=== PATIENT | male | born 1955 | race Asian ===

== ENCOUNTER 2019-03-20 20:31 | Emergency (ER) | payer OTHER ==
[~2019-03-20] VITALS: Ht 160 cm; Wt 68.0 kg
[2019-03-20 20:36] VITALS: Ht 160 cm; Wt 68.0 kg
[2019-03-20 21:17] VITALS: BP 132/79
== END 2019-03-20 21:17 | disposition home or self-care (01) ==
LOC: ED 20:31
DX: S01.01XA Laceration without foreign body of scalp, initial encounter (principal); W18.09XA Striking against other object with subsequent fall, initial encounter; Y93.89 Activity, other specified; Y92.89 Other specified places as the place of occurrence of the external cause; Y99.8 Other external cause status
CPT/HCPCS: 90715; J2001

== ENCOUNTER 2019-03-23 09:15 | Emergency (ER) | payer OTHER ==
[2019-03-23 11:00] VITALS: BP 133/75
== END 2019-03-23 11:00 | disposition home or self-care (01) ==
LOC: ED 09:15
DX: S01.01XD Laceration without foreign body of scalp, subsequent encounter (principal); X58.XXXD Exposure to other specified factors, subsequent encounter